=== PATIENT | female | born 1990 | race American Indian/Alaskan Native ===

== ENCOUNTER 2016-07-29 20:47 | Emergency (ER) | payer SELFPAY ==
[2016-07-29 22:00] VITALS: BP 113/80
== END 2016-07-29 22:00 | disposition left against medical advice (07) ==
LOC: ED 20:47
DX: T14.90 Injury, unspecified (principal); Z53.21 Procedure and treatment not carried out due to patient leaving prior to being seen by health care provider; X58.XXXA Exposure to other specified factors, initial encounter; Y93.9 Activity, unspecified; Y92.9 Unspecified place or not applicable; Y99.9 Unspecified external cause status